=== PATIENT | female | born 1995 | race Caucasian/White ===

== ENCOUNTER → 2017-06-27 | Day surgery (SDC) | payer OTHER ==
[~2017-06-27] VITALS: Ht 165.1 cm; Wt 74.8 kg
--- NOTE | 2017-06-27 09:54 | Operative Report ---
Operative/Inv Procedure Report Surgery Date: 06/27/17 Name of Procedure: tonsillectomy nasopharyngoscopy Pre-Operative Diagnosis: Chronic tonsillopharyngitis Post-Operative Diagnosis: Same Tonsil hypertrophy Estimated Blood Loss: less than 50ml Surgeon/[employer]: Edmond Nuñez MD Anesthesia: general endotracheal tube Specimens: Tonsils right and left Complications: None Condition: Good Operative Indication: Chronic infection with recurrent tonsillitis and sore throats causing her to miss work Operative/Procedure Note Note: With the patient in supine position a timeout was performed to confirm the correct patient and procedure. Following this anesthesia was induced to an oral tracheal tube. The head and body were then draped with sterile towels and sheets. Using a McIvor mouthgag and headlight the oropharynx was exposed and examined. Red Pérez catheters were passed through the nose and exited from the mouth to retract the palate and the nasopharynx was examined indirectly by mirror. The nasopharynx appeared to be clear and so no procedure was performed in the nasopharynx. The tonsils were then removed using a snare and dissection technique. The tonsil was grasped with a tonsil tenaculum and retracted medially. A #12 scalpel blade was then used to perform an anterior tonsillar pillar mucosal incision and dissection was carried down to the capsule with the Metzenbaum scissors. The superior and mid pole of the tonsil dissected from the fossa with a Petit knife, and then the inferior pole, which remained attached, was transected with a tonsil snare. Hemostasis was obtained with suction cautery and packing A similar procedure was performed on the opposite side. Following this the oropharynx was irrigated. There was no evidence of active bleeding and consequently the procedure was ended. An oral gastric tube was passed into the stomach to evacuate the stomach of any swallow contents. She tolerated the procedure well and was then awakened extubated and transferred to recovery in satisfactory condition Findings: Moderate to marked tonsil hypertrophy Clear nasopharynx with no significant adenoid tissue Discharge Disposition: PACU Additional Comments: She is to be discharged to home with post tonsillectomy instructions and Tylenol and Hycet elixir for pain and amoxicillin 250 mg 3 times a day. Follow-up is to be arranged in 1 week in the office CC: Jacqueline Palmer
== END ==
LOC: STS 01:17
DX: J35.01 Chronic tonsillitis (principal); J31.2 Chronic pharyngitis
CPT/HCPCS: 81025; C9399; J0131; J2250; J2405